=== PATIENT | female | born 1995 | race Caucasian/White ===

== ENCOUNTER 2016-06-11 18:17 | Emergency (ER) | payer BC ==
[2016-06-11 18:39] VITALS: BP 145/71
[2016-06-11] MEDS ORDERED: AMOX TR/POTASSIUM CLAVULANATE 875 MG TABLET PO ONE (20:19)
[2016-06-11] MEDS ORDERED: AMOX TR/POTASSIUM CLAVULANATE 875 MG TABLET ONE (20:21)
--- NOTE | 2016-06-11 20:31 | ERNOTE ---
Integumentary HPI - General Presenting Symptoms: rash Time Seen by Provider: 06/11/16 20:04 Source: patient Exam Limitations: no limitations - Immun/Allergies/Home Medications Immunizations: IMMUNIZATION HX Immunizations Up to Date Yes History of Influenza Vaccine Yes Hx Pneumococcal Vaccination No Allergies/Adverse Reactions: Allergies Allergy/AdvReac Type Severity Reaction Status Date / Time No Known Allergies Allergy Verified 06/11/16 18:39 Home Medications: HOME MEDICATIONS ALPRAZolam [Xanax] 0.25 mg PO DAILY PRN 06/11/16 [Last Taken Unknown] Amox Tr/Potassium Clavulanate [Augmentin 875-125 Tablet] 875 mg PO Q12H #20 tab 06/11/16 [Last Taken Unknown] - History of Present Illness Narrative: Pt states she has a pet rat that she has had for a number of months. She states the rat was not being aggressive but scratched her in normal interaction. She developed mild plaques and papules over her chest around the scratch and some spread down her sternum Location: Reports: torso Quality: Reports: itching Severity: moderate Exposure: Reports: other - denies exposure to medications, metals (jewelry) or other skin products to the area Modifying Factors - (Improves): Reports: nothing Associated Symptoms: Reports: change in skin texture Review of Systems - Review of Systems Constitutional: Absent: recent illness EYE: Present: no symptoms reported ENT: Present: no symptoms reported Respiratory: Absent: shortness of breath, cough Cardiology: Present: no symptoms reported Gastrointestinal/Abdominal: Present: no symptoms reported Genitourinary: Present: no symptoms reported Musculoskeletal: Present: no symptoms reported Skin: Present: See HPI Neurological: Present: no symptoms reported Endocrine: Present: no symptoms reported Hematologic/Lymphatic: Present: no symptoms reported Psych: Present: no symptoms reported - Patient's Past Medical History Patient History - Medical: No pertinent hx, Anxiety, Depression Patient History - Cardiac/Respiratory: No pertinent hx Patient History - Cancer: No Hx of Cancer Patient History - Surgical Procedures: T & A Patient History - Other: None LMP (Calendar): 08/12/15 - Social History Living Situations: home Abuse History: No History of abuse Psych History: No pertinent hx Smoking Status: Current every day smoker Patient requests Smoking Cessation Consult: No Initiate information on Smoking Cessation: No Alcohol Use: none Drug Use: none - Immunizations Immunizations Up to Date: Yes Hx Pneumococcal Vaccination: No History of Influenza Vaccine: Yes Physical Exam - Physical Exam General Appearance: Present: wd/wn, alert, no apparent distress Ears, Nose, Throat: Present: normal ENT inspection Neck: Present: normal inspection, nontender, supple. Absent: lymphadenopathy (R ), lymphadenopathy (L) Respiratory: Present: no respiratory distress, no accessory muscle use Extremity Exam: Present: normal inspection, non-tender, normal range of motion Neurological Exam: Present: alert, oriented, normal mood/affect, no motor/ sensory deficits Skin Exam: Present: other - mildly erythematous plaques and papules around the sternal notch and spreading down the central chest, occasional scratch no discharge or weeping Lymphatic Exam: Present: no adenopathy - to include cervical, supra and infraclavicular ED Progress - Vital Signs Vital Signs: Vital Signs 06/11/16 18:33 Temperature 36.7 C Pulse Rate 71 Respiratory 18 Rate Blood Pressure 145/71 O2 Sat by Pulse 100 Oximetry - Progress/Reassessment Chief Complaint: Rash Departure Clinical Impression: Cellulitis of chest wall - Departure Disposition: Home Follow Up Needed Condition: Good Instructions: Cellulitis, Adult, Zlta-dd-Kzog Additional Instructions: Take zyrtec 10mg daily or loli 180 mg daily to help with itching. See your regular doctor if not improving Prescriptions: Amox Tr/Potassium Clavulanate [Augmentin 875-125 Tablet] 875 mg PO Q12H #20 tab
--- OUTSIDE RECORDS SUMMARY | 2016-06-11 20:51 | XMS REPORT | Continuity of Care Document ---
:1995 Author Organization [facility] [place] [address] Care Team Providers Name Role Phone Unavailable Primary Care Provider Unavailable Source Comments This disclosure is being made pursuant to the Chomp program and maynot contain all information available regarding this patient.[employer] Active Allergies and Adverse Reactions Not on File Current Medications Be aware that medications may not be up to date as of this document. Alwaysverify current medications with the patient. Not on file Active Problems Not on file Social History Tobacco Use Types Packs/Day Years Used Date Never Assessed Plan of Care Health Maintenance Due Date Last Done Comments HPV Vaccine (9-26YO) (1 of 3 - Female/Unknown 3 Dose 01/20/2004 Series) Chlamydia Screening 2009 Retired-Tetanus Vaccine Adult 01/20/2012 Pap Smear 2014 Retired-INFLUENZA VACCINE 12/18/2014 Results from Last 3 Months Not on file
--- OUTSIDE RECORDS SUMMARY | 2016-06-11 20:51 | XMS REPORT | Continuity of Care Document ---
:1995 Demographics Phone Unavailable Preferred Language Unknown Marital Status Unknown Hinduism Affiliation Unknown Race Unknown Ethnic Group Unknown Author Organization [facility] ([facility]) [place] [address] Phone [phone] Care Team Providers Name Role Phone Unavailable Primary Care Provider Unavailable Source Comments This disclosure is being made pursuant to the Care Everywhere program, applicable federal and state laws, and may not contain all informaitonavailable regarding this patient.[facility] ([facility]) Active Allergies and Adverse Reactions Not on File Current Medications Not on file Active Problems Not on file Social History Tobacco Use Types Packs/Day Years Used Date Never Assessed Plan of Care Health Maintenance Due Date Last Done Comments Hepatitis B Vaccine (1 of 3 - Primary Series) 1993 HPV Vaccine (1 of 3 - Female/Unknown 3 Dose Series) 01/20/2004 Tdap Vaccine 01/20/2004 Cervical Cancer Screening 2011 Lipid Disorder Screening 2011 MMR Vaccine 2011 Td Vaccine 2011 Varicella Vaccine (1 of 2 - Adult - No Evidence of 2011 Immunity) Influenza Vaccine: Seasonal (#1) 11/18/2015 Results from Last 3 Months Not on file
== END 2016-06-11 20:32 | disposition home or self-care (01) ==
LOC: ER 18:17
DX: L03.313 Cellulitis of chest wall (principal)

== ENCOUNTER 2019-01-09 00:29 | Inpatient (IN) ==
[2019-01-09] MEDS ORDERED: OXYTOCIN/DEXTROSE 5%-WATER 30 UNITS/500 ML BAG IV ONE (00:37)
[2019-01-09] MEDS ORDERED: ONDANSETRON 4 MG TAB.RAPDIS PO PRN (00:37)
[2019-01-09] MEDS ORDERED: DEXTROSE 5%-LACTATED RINGERS 1,000 ML IV PRN (00:37)
[2019-01-09] MEDS ORDERED: MISOPROSTOL 100 MCG TABLET VG PRN (00:37)
[2019-01-09 02:19] LABS: Cocaine Ur Negative (NEGATIVE); Urine Barbiturate Negative (NEGATIVE); Urine Benzodiazepines Negative (NEGATIVE); Urine Opiates Negative (NEGATIVE); Urine PCP Negative (NEGATIVE); Urine THC Negative (NEGATIVE)
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
--- NOTE | 2019-01-09 13:23 | PN ---
Progess Note - Interim Date: 01/09/19 Time: 13:21 Narrative: 01/09/19 13:21 Patient rating her contractions as mild Vital signs stable. Pitocin at 4 mu/min. FHT: 150 baseline, good oxev-ah-kuav variability, 1 early deceleration contractions irregular and difficult to medicinal plant picker with external monitor Cervix: 2-3/80/-1, AROM-moderate meconium, IUPC placed Impression: Intrauterine at 40 3/7 weeks induction of labor. Moderate meconium. Plan: Continue present plan
[2019-01-09] MEDS: RINGER'S SOLUTION,LACTATED 1,000 ML IV ONE ×2 (13:43→14:37)
[2019-01-09] MEDS ORDERED: ONDANSETRON HCL/PF 2 MG/ML VIAL IV PRN ×2 (14:45→20:35)
[2019-01-09] MEDS ORDERED: BUPIVACAINE HCL/0.9 % NACL/PF 250 ML EP PRN (14:45)
[2019-01-09] MEDS ORDERED: fentaNYL CITRATE/PF 50 MCG/ML AMPUL IT SCH (14:45)
[2019-01-09] MEDS ORDERED: NALOXONE HCL 1 MG/1 ML SYRG IV PRN (14:45)
[2019-01-09] MEDS ORDERED: LIDOCAINE HCL 50 ML VIAL ONE (15:09)
[2019-01-09] MEDS ORDERED: LIDOCAINE HCL 50 ML VIAL IJ ONE (15:14)
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
--- NOTE | 2019-01-09 15:40 | ANES ---
Post Anesthesia Discharge - Transfer of Care Transfer of Care handoff given to nurse: Yes - Anesthesia Post Op Note Anesthesia Post Op Note: care transferred to OB RN
--- NOTE | 2019-01-09 15:40 | ANES ---
Post Anesthesia Assessment - Vital Signs Vitals: Last Vital Signs Temp 36.2 C 01/09/19 01:27 Pulse 82 01/09/19 01:27 Resp 16 01/09/19 01:27 BP 126/81 01/09/19 01:27 Pulse Ox 94 01/09/19 01:27 Airway Patency: Normal - Mental Status Level Of Consciousness: Awake - Pain Level Pain Score: 2 - N/V Assessment Nausea/Vomiting Presence: None Dehydration:: No
--- NOTE | 2019-01-09 15:43 | ANES ---
Anesthesia Procedure Note Procedure Note: ANESTHESIA PROCEDURE NOTE Date of Procedure: 01/09/2019 Time of procedure: 1520 Performed by: Charly Edmond CRNA Associate Pastor: None. Preprocedure diagnosis: Active labor. Post procedure diagnosis: Same. Procedure: Insertion of labor epidural. Indications: The patient is a 23-year-old prima para female in active labor requesting labor epidural for pain management. Findings: See below. Details of the procedure: The patient was placed in a sitting position. Back was prepped with DuraPrep. Patient was then draped in a sterile fashion. Lidocaine 1% was infiltrated to the skin and subcutaneous tissues at the level of the L3 4 interspace. The epidural space was identified using a 18-gauge Tuohy needle with vbax-ar-kozjopuphn technique. 20 mcg fentanyl was given intrathecally using a 27 ga. spinal needle. Epidural catheter was inserted without difficulty. Negative test dose was elicited using 5 mL of 1.5% preservative-free lidocaine plus epinephrine 1 200,000. The epidural catheter was then taped and secured in place. EBL: Minimal. Fluids: N/A. Specimen: N/A. Post procedure condition: The patient tolerated the procedure well. No complications were noted. Thank you for this consultation. Bourne CRNA
--- NOTE | 2019-01-09 18:53 | PN ---
Progess Note - Interim Date: 01/09/19 Time: 18:50 Narrative: 01/09/19 18:50 Patient comfortable with epidural Vital signs stable. Pitocin at 1 mu/min. FHT: 120 baseline, moderate variability with good accelerations, occasional late deceleration earlier-none now contractions q 4-5 min Cervix: 6/90/0 Impression: Intrauterine at 40 3/7 weeks, induction of labor. Plan: Risks, benefits, and alternatives to section and operative vaginal delivery discussed with patient and mother in case the need arises in the near future. We will continue to plan for normal spontaneous vaginal delivery at this point.
[2019-01-09] MEDS ORDERED: RINGER'S SOLUTION,LACTATED 1,000 ML IV PRN (19:07)
--- NOTE | 2019-01-09 19:10 | PN ---
Progess Note - Interim Date: 01/09/19 Time: 19:09 Narrative: 01/09/19 19:09 Baby has continued to have decelerations down into the 70s and 80s. Cervix remains unchanged. We will proceed with emergent low transverse section.
[2019-01-09] MEDS ORDERED: OXYTOCIN 20 UNITS in RINGER'S SOLUTION,LACTATED 1,000 ML IV ONE (19:30)
[2019-01-09] MEDS ORDERED: AZITHROMYCIN 500 MG in DEXTROSE 5 % IN WATER 250 ML IV ONE ×2 (19:30)
[2019-01-09] MEDS ORDERED: ceFAZolin SODIUM/DEXTROSE,ISO 2 GM/50 ML BAG IV ONE (19:30)
[2019-01-09] MEDS ORDERED: BISACODYL 10 MG SUPP.RECT RC PRN (20:35)
[2019-01-09] MEDS ORDERED: RINGER'S SOLUTION,LACTATED 1,000 ML IV ONE (20:35)
[2019-01-09] MEDS ORDERED: SENNOSIDES 8.6 MG TABLET PO PRN (20:35)
[2019-01-09] MEDS ORDERED: IBUPROFEN 800 MG TABLET PO PRN (20:35)
[2019-01-09] MEDS ORDERED: SIMETHICONE 80 MG TAB.CHEW PO PRN (20:35)
[2019-01-09] MEDS ORDERED: hydrOXYzine PAMOATE 25 MG CAPSULE PO PRN (20:35)
--- NOTE | 2019-01-09 20:35 | ANES ---
Post Anesthesia Discharge - Transfer of Care Transfer of Care handoff given to nurse: Yes - Discharge from PACU Discharge from PACU when meets criteria: Yes - Awake and less anxious.
--- NOTE | 2019-01-09 20:46 | OR ---
Operative Report - Dictated Report Narrative: Indication: 23-year-old 1 para 0 admitted for induction of labor due to postdates progressed to 6 cm but Pitocin had to keep being turned off due to intolerance to labor having recurrent late decelerations. Status: Emergent called at 1905 descalated to a routine at 1930 since late decelerations resolved with cessation of contractions, thus allowing time for her epidural to set in without having to put patient to sleep. Pre Operative Diagnosis: 40 3/7-week intrauterine . Nonreassuring tracing-recurrent late decelerations Post Operative Diagnosis: Same. Procedure Preformed: Primary Low Transverse Section Surgeon: Emani Renteria DO Furnace Combination Analyst: OR Staff Anesthesia: Epidural Estimated Blood Loss: 430 mL Urine Output: 100 mL of clear urine Fluids Given: 1200 mL of crystalloid Drains: Garcia to gravity Surgical Complications: None Specimens: Placenta to pathology Findings: Female born at 1947 on 01/09/2021 with Apgars 8 and 8, weighing 2790 g in OA presentation with significant molding and caput. Normal uterus, tubes, ovaries. Technique: The patient was taken to the operating room and placed in dorsal supine position with a left lateral tilt. After adequate epidural anesthesia, garcia catheter insertion,SCDs placed, 2 g of Ancef IV given and 500 mg of Zithromax IV started preoperatively, the abdominal cavity was entered via a modified Antonio-Leija incision. Two rolled laps were placed in the pericolic gutters on either side of the uterus. A transverse incision was made in the lower uterine segment and extended laterally and upwardly with digital traction. Moderate meconium fluid was noted upon amniotomy. The infant was delivered easily. Terminal meconium was noted. The cord was clamped and cut and infant was handed off to awaiting cut off saw set up operator. The placenta was allowed to deliver spontaneously. The uterus was cleared of clot and debris. Uterine incision was closed with 0 Vicryl using a running stitch. A second imbricating layer was placed. A few small superficial vessels bleeding on the serosa of the uterus were controlled with cautery. Excellent hemostasis was noted. Rolled laps were removed from the abdominal cavitiy. The peritoneum was closed with a running 3-0 Monocryl. The same suture was used to approximate the rectus and pyramidalis muscles. The fascia was closed with a running 0 Vicryl. The subcutaneous layer was closed with a running 3-0 Monocryl. The same suture was used to approximate the subdermal layer. The skin was closed with a running 4-0 Monocryl and Dermabond. Sponge, lap, needle, and instrument count were correct x 2. Disposition: The patient was transferred to post anesthesia care unit in good condition History for MU History for MU Definition: * The number of deliveries resulting in a live the patient experienced prior to current hospitalization * The previous delivery of live twins or any live multiple gestation is considered one live event. *If primagravida or nulliparous is documented select zero for the number of previous live births. Live Events: Live Events: 0
--- NOTE | 2019-01-09 20:51 | ANES ---
Post Anesthesia Assessment - Vital Signs Vitals: Last Vital Signs Temp 37.3 C 01/09/19 20:45 Pulse 77 01/09/19 20:45 Resp 18 01/09/19 20:45 BP 105/49 01/09/19 20:45 Pulse Ox 98 01/09/19 20:45 Airway Patency: Normal - Mental Status Level Of Consciousness: Awake, Alert, Appropriate - Pain Level Pain Score: 0 - N/V Assessment Nausea/Vomiting Presence: None Dehydration:: No
[2019-01-09] MEDS: DOCUSATE SODIUM 100 MG CAPSULE PO SCH (21:47)
[2019-01-09] MEDS: oxyCODONE HCL/ACETAMINOPHEN 1 TAB TABLET PO PRN (21:48)
[2019-01-09] MEDS: IBUPROFEN 800 MG TABLET PO PRN (21:48)
[2019-01-10] MEDS: oxyCODONE HCL/ACETAMINOPHEN 1 TAB TABLET PO PRN ×5 (00:43→20:28)
[2019-01-10] MEDS: ENOXAPARIN SODIUM 40 MG/0.4 ML SYRG SC SCH (04:38)
[2019-01-10] MEDS: IBUPROFEN 800 MG TABLET PO PRN ×3 (04:39→20:29)
[2019-01-10] MEDS: DOCUSATE SODIUM 100 MG CAPSULE PO SCH ×2 (08:37→20:28)
[2019-01-10] MEDS: PRENATAL VITS96/IRON FUM/FOLIC 1 TAB TABLET PO SCH (08:37)
[2019-01-10] MEDS: FERROUS SULFATE 325 MG TABLET PO SCH ×2 (08:37→16:48)
--- NOTE | 2019-01-10 11:28 | PN ---
Subjective - Date and Time Seen Date: 01/10/19 Time: 08:45 Objective - Vitals Vitals: Last Vital Signs Temp 35.7 C L 01/10/19 06:45 Pulse 65 01/10/19 06:45 Resp 18 01/10/19 06:45 BP 119/76 01/10/19 06:45 Pulse Ox 97 01/10/19 06:45 Patient denies complaints. Tolerating regular diet. Has not been up to ambulate yet. Pain controlled. Lochia wnl. Abdomen - soft, appropriately tender Incision -clean, dry, intact uterus - firm, at umbilicus -1 no calf tenderness Impression: Post op day #1 s/p primary section. Plan: Continue routine post-operative/ care Cauti Physician Documentation - Urinary Catheter Management Urethral (Baca) Date of Insertion: 01/09/19 Time of Insertion: 16:20 Date of Removal: 01/10/19 Time of Removal: 09:00 Assessment/Plan - Problems/Diagnosis (1) Elective induction of labor planned Problem: Acute (2) Generalized anxiety disorder Problem: Chronic (3) Attention deficit disorder of adult with hyperactivity Problem: Chronic
[2019-01-11] MEDS: IBUPROFEN 800 MG TABLET PO PRN ×3 (02:52→23:33)
[2019-01-11] MEDS: oxyCODONE HCL/ACETAMINOPHEN 1 TAB TABLET PO PRN ×6 (02:52→23:34)
[2019-01-11] MEDS: ENOXAPARIN SODIUM 40 MG/0.4 ML SYRG SC SCH (05:00)
[2019-01-11] MEDS: DOCUSATE SODIUM 100 MG CAPSULE PO SCH ×3 (07:08→21:51)
[2019-01-11] MEDS: PRENATAL VITS96/IRON FUM/FOLIC 1 TAB TABLET PO SCH ×2 (07:08→10:15)
[2019-01-11] MEDS: FERROUS SULFATE 325 MG TABLET PO SCH ×3 (07:09→16:16)
--- NOTE | 2019-01-11 11:13 | PN ---
Subjective - Date and Time Seen Date: 01/11/19 Time: 11:13 Objective - Vitals Vitals: Last Vital Signs Temp 36.0 C 01/11/19 07:49 Pulse 79 01/11/19 07:49 Resp 18 01/11/19 07:49 BP 128/83 01/11/19 07:49 Pulse Ox 98 01/11/19 07:49 Patient denies complaints. Ambulating well. Tolerating regular diet. Pain well controlled. Lochia wnl. Abdomen - soft, appropriately tender Incision -clean, dry, intact uterus - firm, at umbilicus -2 no calf tenderness Impression: Post op day #2 s/p primary section. Plan: Continue routine post-operative/ care Cauti Physician Documentation - Urinary Catheter Management Urethral (Baca) Date of Insertion: 01/09/19 Time of Insertion: 16:20 Date of Removal: 01/10/19 Time of Removal: 09:00 Assessment/Plan - Problems/Diagnosis (1) Elective induction of labor planned Problem: Acute (2) Generalized anxiety disorder Problem: Chronic (3) Attention deficit disorder of adult with hyperactivity Problem: Chronic
[2019-01-12] MEDS: ENOXAPARIN SODIUM 40 MG/0.4 ML SYRG SC SCH (05:08)
[2019-01-12] MEDS: oxyCODONE HCL/ACETAMINOPHEN 1 TAB TABLET PO PRN (05:11)
[2019-01-12 07:25] VITALS: BP 133/85
[2019-01-12] MEDS: PRENATAL VITS96/IRON FUM/FOLIC 1 TAB TABLET PO SCH (08:40)
[2019-01-12] MEDS: DOCUSATE SODIUM 100 MG CAPSULE PO SCH (08:40)
[2019-01-12] MEDS: FERROUS SULFATE 325 MG TABLET PO SCH (08:40)
--- NOTE | 2019-01-12 09:00 | PN ---
Subjective - Date and Time Seen Date: 01/12/19 Time: 08:57 Objective - Vitals Vitals: Last Vital Signs Temp 36.0 C 01/12/19 07:18 Pulse 71 01/12/19 07:18 Resp 16 01/12/19 07:18 BP 133/85 01/12/19 07:18 Pulse Ox 99 01/12/19 07:18 Patient complains of epigastric/right upper quadrant discomfort that started yesterday afternoon and has been intermittently present since then. No nausea or vomiting. Ambulating without difficulty. Tolerating regular diet. Pain well controlled. Lochia wnl. Abdomen - soft, appropriately tender around incision and uterus, no CVA tenderness, mild epigastric tenderness, Boateng sign negative incision -clean, dry, intact uterus - firm, at umbilicus -3 no calf tenderness Impression: Post op day #3 s/p primary section. Mild epigastric pain possibly due to to gastritis from pain meds or early gallbladder issues. Plan: Routine discharge instructions. Avoid greasy or spicy foods. Call if signs or symptoms worsen or persist. [facility] Physician Documentation - Urinary Catheter Management Urethral ([place]) Date of Insertion: 01/09/19 Time of Insertion: 16:20 Date of Removal: 01/10/19 Time of Removal: 09:00 Assessment/Plan - Problems/Diagnosis (1) Elective induction of labor planned Problem: Acute (2) Generalized anxiety disorder Problem: Chronic (3) Attention deficit disorder of adult with hyperactivity Problem: Chronic
== END 2019-01-12 14:00 | disposition home or self-care (01) | DRG 787 ==
LOC: OB 00:29
PROVIDERS: ADMIT Obstetrics & Gynecology; ATTEND Obstetrics & Gynecology
CPT/HCPCS: 59025; 80307; 88307